=== PATIENT | male | born 1985 | race Caucasian/White ===

== ENCOUNTER 2020-06-25 11:41 | Emergency (ER) | payer OTHER ==
[~2020-06-25 11:41] MED LIST: FLOMAX0.4 MG PO; KEFLEX250 MG PO; NORCO 5-325 TA1 EACH PO; ONDANSETRON ODT4 MG SL; PERCOCET 5-3251 EACH PO; ZOFRAN4 MG PO; ZOFRAN8 MG PO
[2020-06-25 12:32] LABS: BASOPHIL 0.6 % (0-2); EOSINOPHIL 3.7 % (0-5); HCT 43.5 % (42.0-52.0); HGB 14.3 g/dl (13.2-18.0); LYMPHOCYTE 21.5 % (15-48); MCHC 32.9 g/dL (32.0-36.0); MCV 88.2 fL (78.0-100.0); MONOCYTE 10.2 % (0-12); MPV 9.5 fL (6.0-9.5); NEUTROPHIL 63.7 % (41-80); NRBC 0; PLT 280 K/uL (150-400); RBC 4.93 M/uL (4.70-6.00); RDW 12.7 % (11.5-14.0); WBC 6.6 K/uL (4.0-10.5)
[2020-06-25 13:18] LABS: ALBUMIN 4.2 g/dL (3.4-5.0); BILIRUBIN - TOTAL 0.6 mg/dL (0.2-1.0); BUN/CREAT RATIO (CALC) 14.8 RATIO; CREATININE 1.15 mg/dL (0.67-1.17); GLOBULIN (CALCULATION) 3.5 g/dL; POTASSIUM 3.9 mmol/L (3.5-5.1); TOTAL PROTEIN 7.7 g/dL (6.4-8.2)
[2020-06-25 13:23] LABS: BILIRUBIN NEGATIVE (NEGATIVE); BLOOD 3+ Ery/uL (NEGATIVE); CLARITY CLEAR (CLEAR); COLOR YELLOW (YELLOW); GLUCOSE (U) NORMAL (NORMAL); LEUKOCYTES NEGATIVE Leu/uL (NEGATIVE); NITRITE NEGATIVE (NEGATIVE); PROTEIN NEGATIVE (NEGATIVE); UROBILINOGEN 0.2 mg/dL (0.2-1.0); pH 5.5 (5.0-9.0)
[2020-06-25 13:32] LABS: BACTERIA TRACE; SQUAMOUS EPITHELIAL CELLS RARE; URINARY RBC 20-50; URINARY WBC RARE
[2020-06-25] MEDS ORDERED: FLOMAX 0.4 MG0.4 MG PO (14:25)
[2020-06-25] MEDS ORDERED: NORCO 5-325 TA1 EACH PO (14:25)
== END 2020-06-25 14:56 | disposition home or self-care (01) ==
LOC: FER 11:41
PROVIDERS: Emergency Medicine
DX: N13.2 Hydronephrosis with renal and ureteral calculous obstruction (principal); F17.290 Nicotine dependence, other tobacco product, uncomplicated
CPT/HCPCS: 36415; 80053; 81001; 82150; 83690; 85025; J1885; J2405; J7030

== ENCOUNTER 2020-08-23 20:44 | Emergency (ER) | payer OTHER ==
[~2020-08-23 20:44] MED LIST changes: +FLOMAX 0.4 MG0.4 MG PO
[2020-08-23 22:06] LABS: BILIRUBIN NEGATIVE (NEGATIVE); BLOOD TRACE-INTACT Ery/uL (NEGATIVE); CLARITY CLEAR (CLEAR); COLOR YELLOW (YELLOW); GLUCOSE (U) NORMAL (NORMAL); LEUKOCYTES NEGATIVE Leu/uL (NEGATIVE); NITRITE NEGATIVE (NEGATIVE); PROTEIN NEGATIVE (NEGATIVE); SPECIFIC GRAVITY 1.025 (1.001-1.030); UROBILINOGEN 0.2 mg/dL (0.2-1.0); pH 5.5 (5.0-9.0)
[2020-08-23 22:27] LABS: BASOPHIL 0.6 % (0-2); EOSINOPHIL 1.7 % (0-5); HCT 43.1 % (42.0-52.0); HGB 14.2 g/dl (13.2-18.0); LYMPHOCYTE 21.7 % (15-48); MCH 29.3 pg (25.0-31.0); MCHC 32.9 g/dL (32.0-36.0); MCV 88.9 fL (78.0-100.0); MPV 9.5 fL (6.0-9.5); NEUTROPHIL 66.6 % (41-80); NRBC 0; PLT 289 K/uL (150-400); RBC 4.85 M/uL (4.70-6.00); RDW 12.8 % (11.5-14.0)
[2020-08-23 22:32] LABS: BACTERIA TRACE; URINARY WBC RARE
[2020-08-23 22:33] LABS: AMORPHOUS URATES CRYSTALS TRACE; MUCOUS LARGE
[2020-08-23] MEDS ORDERED: HYDROCODON-ACE1 EAC2 PO (22:39)
[2020-08-23 22:43] LABS: BUN/CREAT RATIO (CALC) 14.2 RATIO; CREATININE 1.13 mg/dL (0.67-1.17); POTASSIUM 3.3 mmol/L (3.5-5.1)
== END 2020-08-23 22:55 | disposition home or self-care (01) ==
LOC: FER 20:44
PROVIDERS: Emergency Medicine
DX: R10.9 Unspecified abdominal pain (principal); N20.0 Calculus of kidney; F17.290 Nicotine dependence, other tobacco product, uncomplicated; Z87.442 Personal history of urinary calculi
CPT/HCPCS: 36415; 80048; 81001; 85025; J1885